=== PATIENT | female | born 1995 | race Caucasian/White ===

== ENCOUNTER 2020-10-07 18:05 | Emergency (ER) | payer OTHER ==
[~2020-10-07] VITALS: Ht 170.2 cm; Wt 72.6 kg
[2020-10-07 18:05] VITALS: BP_SYST 106
--- NOTE | 2020-10-07 18:44 | NUR ---
Patient to ER bed 07 to gown for evaluation.
--- NOTE | 2020-10-07 19:00 | NUR ---
PATIENT BROUGHT IN AMBULATORY, AOX4, COMPLAINING OF LEFT FLANK PAIN X 6 DAYS. PATIENT WAS DIAGNOSED WITH UTI 6 DAYS AGO AND PRESCRIBED FLOMAX AND CIPRO WITH MILD RELIEF. COMPLAINS OF PAIN TO LEFT FLANK THAT IS DULL INTERMITTENT. PAIN 5/10. NO OTHER COMPLAINTS/INJURIES PER PATIENT OR NOTED. WILL CONTINUE TO MONITOR.
--- NOTE | 2020-10-07 19:15 | NUR ---
Urine specimen collected and analyzed in LABORATORY. Results PENDING
[2020-10-07 19:29] LABS: BILIRUBIN,URINE NEGATIVE (NEGATIVE); BLOOD, URINE 3+ (NEGATIVE); CLARITY/URINE SL CLOUDY (CLEAR); COLOR,URINE YELLOW (YELLOW); GLUCOSE,URINE NEGATIVE (NEGATIVE); KETONES,URINE NEGATIVE (NEGATIVE); LEUKOCYTE ESTERASE ,URINE TRACE (NEGATIVE); NITRITE, URINE NEGATIVE (NEGATIVE); PROTEIN URINE TRACE (NEGATIVE); UROBILINOGEN,URINE 0.2 (0.2-1.0)
[2020-10-07 19:51] LABS: BACTERIA,URINE FEW /HPF (None Seen); MUCUS,URINE 2+ /LPF (None Seen); RBC,URINE 80-100 /HPF (0-3)
--- NOTE | 2020-10-07 19:55 | NUR ---
ER at bedside examining patient.
[2020-10-07] MEDS ORDERED: NACL 0.9% 1,000 ML IV ONE (20:00)
--- NOTE | 2020-10-07 20:04 | NUR ---
# 20 gauge angiocath placed to LAC. Use of asceptic technique. Opsite placed over site. Blood return noted. Flushed with 10 cc of normal saline. No evidence of infiltration noted. Patient tolerated well.
--- NOTE | 2020-10-07 20:22 | NUR ---
Patient transported to radiology via WHEELCHAIR, accompanied by HYDROTECHNICAL SPECIALIST
--- NOTE | 2020-10-07 21:15 | NUR ---
DR. LICEA AT BEDSIDE DISCUSSING RESULTS.
[2020-10-07 21:27] VITALS: BP_SYST 122
--- NOTE | 2020-10-07 21:27 | NUR ---
Patient given written and verbal discharge instructions and verbalizes understanding. ER MD discussed with patient the results and treatment provided. Patient in stable condition. ID arm band removed. IV catheter removed intact and dressing applied, no active bleeding. Rx of MOTRIN, NORCO AND BACTRIM given. Patient educated on pain management and to follow up with PMD. Pain Scale 0/10 Opportunity for questions provided and answered. Medication side effect fact sheet provided.
== END 2020-10-07 21:27 | disposition home or self-care (01) ==
LOC: SED 18:05
DX: N20.0 Calculus of kidney (principal); R10.9 Unspecified abdominal pain
CPT/HCPCS: 74176; 76376; 81000; 87086; 96360; 99284; J7030

== ENCOUNTER 2020-10-22 15:40 | Outpatient (CLI) | payer OTHER | END 2020-10-22 20:34 | disposition home or self-care (01) | LOC: SRD 15:40 | PROVIDERS: ATTEND Family Medicine | DX: N20.1 Calculus of ureter (principal) | CPT/HCPCS: 74018 ==

== ENCOUNTER 2020-11-09 17:58 | Outpatient (CLI) | payer OTHER | END 2020-11-09 19:00 | disposition home or self-care (01) | LOC: SRD 17:58 | PROVIDERS: ATTEND Family Medicine | DX: N20.0 Calculus of kidney (principal) | CPT/HCPCS: 74018 ==